=== PATIENT | male | born 1935 | race Caucasian/White ===

== ENCOUNTER → 2019-01-25 | Outpatient (CLI) | payer MEDICARE, OTHER, SELFPAY | PROVIDERS: PCP Internal Medicine; Visit Provider Nurse Practitioner | DX: Z13.6 Encounter for screening for cardiovascular disorders (principal); E78.5 Hyperlipidemia, unspecified | CPT/HCPCS: 36415; 80053; 80061 ==

== ENCOUNTER 2020-01-30 10:02 | Outpatient (CLI) | payer MEDICARE, OTHER, SELFPAY ==
[2020-01-30 10:49] LABS: Alanine Aminotransferase 19 U/L (4-50); Albumin Level 3.8 g/dL (3.5-5.1); Alkaline Phosphatase 53 U/L (38-126); Anion Gap 6 mmol/L (8-16); Aspartate Amino Transferase 22 U/L (17-59); Bilirubin,Total 0.2 mg/dL (0.2-1.3); Blood Urea Nitrogen 18 mg/dL (9-20); Calcium 9.3 mg/dL (8.4-10.2); Carbon Dioxide 31 mmol/L (22-30); Chloride 105 mmol/L (98-107); Cholesterol 141 mg/dL (0-200); Estimated Glomerular Filt Rate > 60; Glucose 104 mg/dL (75-110); HDL Direct 48 mg/dL; Sodium 142 mmol/L (137-145); Triglycerides 94 mg/dL (<150)
[2020-01-30 11:00] LABS: LDL Cholesterol Direct 77 mg/dL
[2020-02-03 07:34] LABS: Red Blood Cell Folate 872 ng/mL RBC (>280)
== END 2020-01-30 10:03 | disposition home or self-care (01) ==
PROVIDERS: PCP Internal Medicine; Visit Provider Internal Medicine
DX: R41.3 Other amnesia (principal); Z51.81 Encounter for therapeutic drug level monitoring; E78.5 Hyperlipidemia, unspecified
CPT/HCPCS: 36415; 80053; 80061; 82607; 82747; 84443

== ENCOUNTER → 2020-06-18 07:55 | Outpatient (CLI) | payer MEDICARE, OTHER, SELFPAY ==
--- NOTE | ~2020-06-18 | MR_ITS ---
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 TECHNIQUE: Magnetic resonance imaging (MRI) of the brain/brain stem obtained without contrast. Sagitt al T1, axial diffusion, gradient echo (T2*), T1, T2, FLAIR sequences obtained. There is no prior st udy for comparison. FINDINGS: There are no areas of restricted diffusion to suggest acute infarction. There is no acute hemorrhage seen on the T2*, a hemosiderin sensitive sequence. No intraparenchymal brain mass lesion. There is mild periventricular and subcortical T2/FLAIR signal hyperintensity, nonspecific but probab ly related to small vessel ischemic disease (microangiopathy). There is mild prominence of the sulc i and ventricles related to cerebral atrophy. There are no extra-axial collections. Flow voids are seen in the cerebral arteries on the T2-weighted sequences consistent with their expected patency. The orbits are unremarkable. There is 4 mm nonspecific calvarial signal abnormality in the left parieto-occipital region. Low-lyin g right cerebellar tonsil, not meeting criteria for Chiari 1 malformation. IMPRESSION: 1. Mild age-related findings. 2. Solitary punctate calvarial signal abnormality, most likely hemangioma or other benign finding. Reviewed, dictated and finalized at location [facility]. [facility] IMPRESSION: 1. Mild age-related findings. 2. Solitary punctate calvarial signal abnormality, most likely hemangioma or o ther benign finding.
== END ==
PROVIDERS: PCP Internal Medicine
DX: F03.91 Unspecified dementia, unspecified severity, with behavioral disturbance (principal)
CPT/HCPCS: 70551

== ENCOUNTER 2020-11-27 10:55 | Outpatient (CLI) | payer MEDICARE, OTHER, SELFPAY ==
[2020-11-27 11:32] LABS: Alanine Aminotransferase 20 U/L (4-50); Albumin Level 4.1 g/dL (3.5-5.1); Alkaline Phosphatase 55 U/L (38-126); Anion Gap 7 mmol/L (8-16); Aspartate Amino Transferase 27 U/L (17-59); Bilirubin,Total 0.4 mg/dL (0.2-1.3); Blood Urea Nitrogen 17 mg/dL (9-20); Calcium 9.5 mg/dL (8.4-10.2); Carbon Dioxide 30 mmol/L (22-30); Chloride 102 mmol/L (98-107); Cholesterol 173 mg/dL (0-200); Estimated Glomerular Filt Rate > 60; Glucose 103 mg/dL (65-110); HDL Direct 54 mg/dL; Potassium 4.3 mmol/L (3.4-5.0); Sodium 139 mmol/L (137-145); Triglycerides 91 mg/dL (<150)
[2020-11-27 11:44] LABS: LDL Cholesterol Direct 83 mg/dL
== END 2020-11-27 10:56 | disposition home or self-care (01) ==
PROVIDERS: PCP Internal Medicine; Visit Provider Nurse Practitioner
DX: E78.00 Pure hypercholesterolemia, unspecified (principal)
CPT/HCPCS: 36415; 80053; 80061

== ENCOUNTER → 2021-05-23 02:03 | Outpatient (CLI) | payer MEDICARE, OTHER, SELFPAY ==
[2021-05-23 21:12] LABS: SARS-CoV-2 RNA PCR Positive
== END ==
PROVIDERS: PCP Internal Medicine; Visit Provider Internal Medicine
DX: U07.1 COVID-19 (principal)
CPT/HCPCS: C9803; U0003; U0005

== ENCOUNTER 2021-06-10 14:25 | Outpatient (CLI) | payer MEDICARE, OTHER, SELFPAY ==
[2021-06-10 15:21] LABS: Alanine Aminotransferase 22 U/L (4-50); Albumin Level 3.7 g/dL (3.5-5.1); Alkaline Phosphatase 62 U/L (38-126); Anion Gap 4 mmol/L (8-16); Aspartate Amino Transferase 28 U/L (17-59); Bilirubin,Total 0.2 mg/dL (0.2-1.3); Blood Urea Nitrogen 18 mg/dL (9-20); Calcium 9.3 mg/dL (8.4-10.2); Carbon Dioxide 31 mmol/L (22-30); Chloride 106 mmol/L (98-107); Cholesterol 153 mg/dL (0-200); Estimated Glomerular Filt Rate > 60; Glucose 110 mg/dL (65-110); HDL Direct 48 mg/dL; Potassium 3.8 mmol/L (3.4-5.0); Sodium 141 mmol/L (137-145); Triglycerides 98 mg/dL (<150)
[2021-06-10 15:31] LABS: LDL Cholesterol Direct 75 mg/dL
== END 2021-06-10 14:26 | disposition home or self-care (01) ==
PROVIDERS: PCP Internal Medicine; Visit Provider Internal Medicine
DX: Z51.81 Encounter for therapeutic drug level monitoring (principal); E78.00 Pure hypercholesterolemia, unspecified; E78.5 Hyperlipidemia, unspecified
CPT/HCPCS: 36415; 80053; 80061

== ENCOUNTER 2021-10-18 13:08 | Outpatient (CLI) | payer MEDICARE, OTHER, SELFPAY ==
--- NOTE | ~2021-10-18 | CT_ITS ---
EXAMINATION: CT abdomen pelvis w con DATE: 10/18/2021 13:44 INDICATION: Left lower quadrant abdominal pain TECHNIQUE: Computed tomography (CT) of the abdomen and pelvis was performed with 100 cc Omnipaque 300 intravenous contrast. Automated exposure control and iterative reconstruction technique were employe d. Exam dose: 289.51 mGy-cm total exam DLP. COMPARISON: None. FINDINGS: Lung bases are clear of consolidation. Mild discoid atelectasis or scar at left lung base. Calcified pulmonary granuloma, lingula. Normal heart size. No pericardial or pleural effusion. No hepatic, splenic, pancreatic, and adrenal or renal space-occupying mass lesion is detected. The g allbladder is unremarkable. No bile duct or pancreatic duct dilatation. There is extensive calcification of the abdominal aorta and iliac and femoral arteries. No intraperi toneal or retroperitoneal or pelvic mass lesion or lymphadenopathy or ascites. Normal appendix. There is small bowel dilatation measuring up to 3.5 cm diameter, with numerous air fluid levels. There is a transition point in the lower anterior pelvis near midline, with soft tissue thickening of the wall. There is minimal likely incidental small bowel intussusception in the right lower quadrant. There are numerous diverticula of the colon; no evidence of diverticulitis. No intraperitoneal free air. There is prominent prostate enlargement and calcification. There is mild free fluid in the dependent pelvis. There is extensive degenerative change of the thoracic and particularly lumbar spine. IMPRESSION: Small bowel obstruction, right lower abdomen Extensive diverticulosis of the colon Normal appendix Prostate enlargement and calcifications Reviewed, dictated and finalized at [facility]. Reviewed, dictated and finalized at location [facility].
[2021-10-18 13:33] LABS: Estimated Glomerular Filt Rate > 60
== END 2021-10-18 13:09 | disposition home or self-care (01) ==
PROVIDERS: PCP Internal Medicine; Visit Provider Nurse Practitioner
DX: R10.32 Left lower quadrant pain (principal); K56.699 Other intestinal obstruction unspecified as to partial versus complete obstruction; K57.90 Diverticulosis of intestine, part unspecified, without perforation or abscess without bleeding; N40.0 Benign prostatic hyperplasia without lower urinary tract symptoms
CPT/HCPCS: 74177; Q9967

== ENCOUNTER 2021-10-21 13:09 | Inpatient (IN) | payer MEDICARE, OTHER, SELFPAY ==
[2021-10-21] VITALS (8 sets, daily range): BP systolic 116–135; BP diastolic 40–49; PULSE 68–85; RESP 16–18; TEMP 36.4; O2SAT 93–100
--- NOTE | ~2021-10-21 | XR_ITS ---
EXAMINATION: XR chest 1V portable INDICATION: Cough TECHNIQUE: Portable AP chest at 1545 hours COMPARISON: CT from today FINDINGS: There are airspace opacities in the right midlung zone. No pleural effusion or pneumothorax is identified. The heart size is normal. IMPRESSION: 1. Airspace opacities in the right midlung zone, demonstrated to be in the right upper lobe on today' s CT examination, consistent with postobstructive atelectasis versus pneumonia. Reviewed, dictated and finalized at location A. IMPRESSION: 1. Airspace opacities in the right midlung zone, demonstrated to be in the righ t upper lobe on today's CT examination, consistent with postobstructive atelect asis versus pneumonia.
--- NOTE | ~2021-10-21 | XR_ITS ---
EXAMINATION: XR abdomen obstructive series DATE: 10/22/2021 08:12 INDICATION: Small bowel obstruction. TECHNIQUE: Upright and supine views of the abdomen were obtained. COMPARISON: CT abdomen and pelvis 10/18/2021 FINDINGS: There are dilated loops of small bowel. The colon is normal in caliber. No free intraperito alejandra gas. There are airspace opacities in right midlung zone. IMPRESSION: 1. Persistently dilated small bowel, consistent with small bowel obstruction. 2. Persistent airspace opacities in right midlung zone, consistent with pneumonia. Reviewed, dictated and finalized at location A. IMPRESSION: 1. Persistently dilated small bowel, consistent with small bowel obstruction. 2. Persistent airspace opacities in right midlung zone, consistent with pneumon ia.
--- NOTE | ~2021-10-21 | XR_ITS ---
EXAMINATION: XR chest 2V DATE: 10/23/2021 09:11 INDICATION: Right-sided pneumonia. TECHNIQUE: Frontal and lateral views of the chest were obtained. COMPARISON: Chest 2 views 10/22/2021 FINDINGS: There are airspace opacities in right midlung zone predominantly involving anterior segment right upper lobe. There is mild atelectasis at the lung bases. A calcified left lung nodule and calc ified left hilar lymph nodes are consistent with old granulomatous disease. No pleural effusion or pn eumothorax. The heart size is normal. There are old healed left rib fractures. IMPRESSION: 1. Stable airspace opacities in right midlung zone predominantly involving anterior segment right upp er lobe, consistent with pneumonia. Reviewed, dictated and finalized at location A. IMPRESSION: 1. Stable airspace opacities in right midlung zone predominantly involving ante rior segment right upper lobe, consistent with pneumonia.
--- NOTE | ~2021-10-21 | XR_ITS ---
EXAMINATION: XR chest 2V DATE: 10/22/2021 08:12 INDICATION: Cough. TECHNIQUE: Frontal and lateral views of the chest were obtained. COMPARISON: Chest single view 10/21/2021, chest CT 10/21/2021 FINDINGS: There are airspace opacities in right midlung zone predominantly involving anterior segment right upper lobe. A calcified left lung nodule is consistent with old granulomatous disease. There i s mild atelectasis versus scarring at the lung bases. There is a small right pleural effusion. No pne umothorax. The heart size is normal. IMPRESSION: 1. Mildly worsened airspace opacities in right midlung zone predominantly involving anterior segment right upper lobe, consistent with pneumonia. 2. Small right pleural effusion. Reviewed, dictated and finalized at location A. IMPRESSION: 1. Mildly worsened airspace opacities in right midlung zone predominantly invol ving anterior segment right upper lobe, consistent with pneumonia. 2. Small right pleural effusion.
--- NOTE | ~2021-10-21 | CT_ITS ---
EXAMINATION: CT diagnostic chest wo con DATE: 10/21/2021 14:45 INDICATION: Lung mass TECHNIQUE: Computed tomography (CT) of the chest was performed without intravenous contrast. The dose -length product (DLP) was 161.52 mGy-cm. Automated exposure control and iterative reconstruction tech nique were employed. COMPARISON: 10/18/2021 FINDINGS: There are confluent airspace opacities of the right upper lobe. There is abrupt cut off of bronchi with branching hyperattenuating material in the affected segments of the right upper lobe. Pa tchy airspace opacities are present in the right middle and lower lobes. There is a small right pleur al effusion. There is no pneumothorax. There is mild bronchial wall thickening in the lower lobes. Th e heart size is normal. There is mild mediastinal lymphadenopathy. There are persistently dilated loo ps of small bowel are identified in the upper abdomen. There is severe thoracolumbar spondylosis. IMPRESSION: 1. Confluent airspace opacities of the right upper lobe with abrupt cut off of the bronchi and branch ing hyperattenuating material in the affected segments possibly reflecting aspiration or mucous plugg ing. Consider bronchoscopy. 2. Patchy opacities of the right middle and lower lobes, likely infectious/inflammatory. 3. No persistently dilated loops of small bowel in the visualized upper abdomen. Reviewed, dictated and finalized at location A. IMPRESSION: 1. Confluent airspace opacities of the right upper lobe with abrupt cut off of the bronchi and branching hyperattenuating material in the affected segments po ssibly reflecting aspiration or mucous plugging. Consider bronchoscopy. 2. Patchy opacities of the right middle and lower lobes, likely infectious/infl ammatory. 3. No persistently dilated loops of small bowel in the visualized upper abdomen .
--- NOTE | ~2021-10-21 | XR_ITS ---
EXAMINATION: XR abdomen obstructive series DATE: 10/21/2021 13:56 INDICATION: Abdominal pain TECHNIQUE: Upright and supine views of the abdomen were obtained. COMPARISON: CT, 10/18/2021 FINDINGS: There are persistent but decreased dilated small bowel loops. No free intraperitoneal gas i s identified. There is severe lumbar spondylosis. Moderate osteoarthritis is noted. There are airspac e opacities of the right midlung zone. IMPRESSION: 1. Improved small bowel obstruction. 2. Airspace opacities of the right midlung zone, infectious/inflammatory versus malignancy. Dedicated CT of the chest is recommended. Reviewed, dictated and finalized at location A.
--- NOTE | ~2021-10-21 | XR_ITS ---
EXAMINATION: XR sm bowel follow through WS DATE: 10/22/2021 14:35 INDICATION: Small bowel obstruction TECHNIQUE: Oral contrast was administered, and sequential radiographs of the abdomen were obtained u ntil oral contrast was noted to be in the proximal colon. No fluoroscopic images were obtained. COMPARISON: CT, 10/18/2021 FINDINGS: Transit time from the stomach to proximal colon was approximately one hour. There is normal caliber and mucosal fold pattern throughout the small bowel. Terminal ileum is normal. IMPRESSION: 1. Unremarkable small bowel follow-through. No obstruction. Reviewed, dictated and finalized at location A.
[2021-10-21 13:42] LABS: Basophils Percent Auto 0.9 % (0.2-1.2); Eosinophils Absolute Auto 0.3 K/mm3 (0-0.3); Eosinophils Percent Auto 5.6 % (0-4.4); Hematocrit 28.5 % (42.0-52.0); Hemoglobin 9.2 g/dL (14.0-18.0); Immature Granulocyte Absolute 0.03 K/mm3 (0.00-0.031); Immature Granulocyte Percent A 0.7 % (0-0.5); Lymphocytes Absolute Auto 0.57 K/mm3 (0.9-3.2); Lymphocytes Percent Auto 12.7 % (18.3-44.2); Mean Corpuscular HGB Conc 32.3 g/dl (32-36); Mean Corpuscular Hemoglobin 32.6 pg (26-34); Mean Corpuscular Volume 101.1 fl (80-100); Mean Platelet Volume 8.8 fl (7.4-10.4); Monocytes Absolute Auto 0.2 K/mm3 (0.1-0.6); Monocytes Percent Auto 3.6 % (2.6-8.5); Neutrophils Absolute Auto 3.4 K/mm3 (1.3-6.7); Neutrophils Percent Auto 76.5 % (45.5-73.1); Platelet Count Result 256 k/mm3 (150-375); Red Blood Count 2.82 M/mm3 (4.6-6.20); Red Cell Distribution Width 13.7 % (11.5-14.5); White Blood Count 4.5 K/mm3 (4.5-10.0)
--- NOTE | 2021-10-21 13:45 | PC.NURSE ---
Patient attempting to give urine sample at this time, declines straight cath.
--- NOTE | 2021-10-21 13:50 | ED.GENADULT ---
HPI - General Adult General Chief complaint: Nausea/Vomiting/Diarrhea Stated complaint: abdominal pain Time Seen by Provider: 10/21/21 13:10 Source: RN notes reviewed History of Present Illness HPI narrative: Patient presents emergency department from home for small bowel obstruction. Patient states he been having abdominal pain for the past week and a half he was seen by his PCP last Thursday and had a CT scan done on Thursday states he was called today and told to come to the emergency department as is CT scan shows small bowel obstruction. Patient states he has no abdominal pain at this time. States he last vomited 2 days ago and his last bowel movement was this morning he denies any fevers or chills chest pain shortness of breath or any other symptom Related Data Home Medications Medication Instructions Recorded Confirmed aspirin 325 mg tablet 325 mg PO DAILY 07/20/19 10/21/21 calcium carbonate 600 mg calcium 600 mg PO DAILY 12/05/20 10/21/21 (1,500 mg) tablet (Calcium) cholecalciferol (vitamin D3) 625 625 mcg PO WEEKLY 12/05/20 10/21/21 mcg (25,000 unit) capsule multivitamin 1 tablet PO DAILY 12/05/20 10/21/21 donepezil 10 mg tablet 10 mg PO QHS 06/12/21 10/21/21 sertraline 50 mg tablet 50 mg PO DAILY 06/12/21 10/21/21 Allergies Allergy/AdvReac Type Severity Reaction Status Date / Time No Known Allergies Allergy Mild Verified 10/21/21 13:22 Review of Systems Review of Systems: Gen.: Denies fevers or chills ENT: Denies congestion Respiratory: Denies shortness of breath or cough CV: Denies chest pain or palpitations GI: See HPI denies burning, urgency, frequency or hematuria Musculoskeletal: Denies back pain or muscle pain Neuro: Denies numbness, tingling, weakness or focal weakness Skin: Denies rash Except as documented, all other systems reviewed and negative [facility] Past Medical History Medical History (Updated 10/21/21 @ 15:57 by Bishnu Coronado DO) Pure hypercholesterolemia, unspecified Family History Family History Mother Patient's mother is Father Patient's father is Social History Social History Smoking status: Former smoker Smoking end date: 05/04/96 Alcohol intake: never Exam Narrative: APPEARANCE: No acute distress, nontoxic, resting in bed EYES: EOMI HEENT: Normocephalic, atraumatic, OMM RESPIRATORY: No respiratory distress Clear to auscultation bilaterally with no rhonchi wheezing or rales. CARDIOVASCULAR: Regular rate and rhythm without murmurs rubs or gallops. ABDOMINAL: Soft, nontender, nondistended, no rebound or guarding MUSCULOSKELETAl: Moves all extremities. No clubbing, cyanosis or edema. NEURO: Awake and alert. Following commands, speech normal, no focal deficits SKIN:: Warm, dry. No rashes lesions or abrasions PSYCHIATRIC: Normal affect/mood, Course Course Emergency Course: Reviewed old records including CT scan from 10/18 showing a small bowel obstruction Called and discussed with Dr. Amaro presentation work-up. At this time recommends admission recommends repeat abdominal series in a.m. patient may have clear liquids and will follow as inpatient Discussed with Dr. Apodaca patient CT results at this time recommends patient started on Zosyn as well as albuterol recommends a.m. chest x-ray and will follow as inpatient Discussed with [facility] Crystal for Dr. Lee agrees with admission Discussed with patient and family results of workup and diagnosis. Discussed need for admission. Patient and family understand and agree to current treatment plan Vital Signs Vital signs: Vital Signs Pulse Rate 85 10/21/21 13:15 Respiratory Rate 18 10/21/21 13:15 Blood Pressure 132/49 L 10/21/21 13:15 Pulse Oximetry 97 10/21/21 13:15 Oxygen Delivery Room Air 10/21/21 13:15 Pulse Rate 75 10/21/21 15:3
[2021-10-21 13:54] LABS: Alanine Aminotransferase 18 U/L (6-50); Albumin Level 3.2 g/dL (3.5-5.1); Alkaline Phosphatase 52 U/L (38-126); Anion Gap 2 mmol/L (8-16); Aspartate Amino Transferase 20 U/L (17-59); Bilirubin,Total < 0.1 mg/dL (0.2-1.3); Blood Urea Nitrogen 15 mg/dL (9-20); Calcium 8.3 mg/dL (8.4-10.2); Carbon Dioxide 30 mmol/L (22-30); Chloride 100 mmol/L (98-107); Estimated CRCL calculation 58 ml/min; Estimated Glomerular Filt Rate > 60; Glucose 151 mg/dL (65-110); INR 1.2; Potassium 3.5 mmol/L (3.4-5.0); Prothrombin Time 14.8 Seconds (11.1-14.7); Sodium 132 mmol/L (137-145)
[2021-10-21 13:55] LABS: Partial Thromboplastin Time 35.6 SECONDS (22.3-36.8)
[2021-10-21] MEDS: PIPERACILLIN/TAZOBACTAM SOD 4.5 GM in SODIUM CHLORIDE 0.9% IV 100 ML 200 ML IVPB ×2 (15:31→21:38)
--- NOTE | 2021-10-21 15:33 | PC.NURSE ---
patient is attempting to give urine sample at this time, patient declines straight cath.
[2021-10-21 15:50] LABS: Lactic Acid Reflex 1.3 mmol/L (0.7-2.0)
[2021-10-21 16:01] LABS: Appearance Urine Slightly Cloudy (Clear); Bilirubin Urine Negative (Negative); Blood Urine Negative (Negative); Color Urine Yellow (Yellow); Glucose Urine UA Negative (Negative); Ketones Urine Negative (Negative); Leukocyte Esterase Ur Negative LEU/UL (Negative); Nitrate Urine Negative (Negative); Protein Urine 1+ mg/dL (Negative); Urobilinogen Urine 0.2 mg/dL (<2.0); pH Urine 5.5 (5.0-9.0)
[2021-10-21 16:05] LABS: Mucus Urine Heavy /lpf; RBC Urine 0-2 /hpf (0-2); WBC Urine 0-3 /hpf
[2021-10-21 16:07] LABS: Add Urine Microscopic? YES
--- NOTE | 2021-10-21 16:17 | PM.CNGS ---
Assessment and Plan Assessment and plan (1) Small bowel obstruction: Code(s): K56.609 - Unspecified intestinal obstruction, unspecified as to partial versus complete obstruction Status: Acute Assessment and Plan: CT scan from Thursday was reviewed and discussed with family and the patient in detail. There is evidence of a small bowel obstruction. There is also mention of a small bowel intussusception in the RLQ, which is typically transient. He has no history of abdominal surgery that would suggest significant intra-abdominal adhesions as a cause for the small bowel obstruction. It also seems he has been having symptoms for even longer than two weeks with weight loss and poor appetite that are concerning. Although the obstructive series in the ER suggests this is improving, the etiology is still not clear. We will allow him to have clear liquids tonight and will repeat an obstructive series tomorrow morning. May consider a Gastrografin small bowel follow through tomorrow to further evaluate the small bowel and possible intussusception. There is also a fair amount of stool in the colon, so I will add Miralax and give a dulcolax suppository tonight. Thank you for allowing us to see the patient in consultation and we will continue to follow along with you. (2) Community acquired pneumonia: Code(s): J18.9 - Pneumonia, unspecified organism Status: Acute Assessment and Plan: He was started on IV Zosyn. Management per Hospitalist. (3) Anemia: Code(s): D64.9 - Anemia, unspecified Status: Acute (4) Dementia: Code(s): F03.90 - Unspecified dementia without behavioral disturbance Status: Acute (5) Benign prostatic hyperplasia without lower urinary tract symptoms: Code(s): N40.0 - Benign prostatic hyperplasia without lower urinary tract symptoms Status: Acute Plan I have discussed the patient's case and plan of care with Dr. Amaro. History of Present Illness Consult details Consult date: 10/21/21 Reason for consult: other (Small bowel obstruction) Requesting physician: Bishnu Coronado DO Narrative: This is an 85-year-old male with a history of dementia and hyperlipidemia, who has recently been experiencing intermittent generalized abdominal pain, vomiting, and poor appetite. His and son are at the bedside who assist in providing history with the patient's permission. Over the past 1-2 weeks, he has had at least 2 episodes of vomiting at home after meals and has been noted to appear to have abdominal pain mostly after meals. His family believes they have noticed he appears uncomfortable at other times during the day as well. They also report associated diarrhea last week and malaise. He has had poor oral intake for the past few weeks and they have been trying to get him to eat Ensure drinks daily. His believes he has lost 15-20 pounds over the past month or so. They never felt his symptoms were severe enough to come into the ER, so they had him see his PCP last Thursday. They started in on Augmentin, which he has been taking, for suspected diverticulitis, and also ordered a CT scan of the abdomen and pelvis. The CT was performed on Thursday of last week, and showed small bowel obstruction with transition point int eh lower anterior pelvis with soft tissue thickening of the wall and minimal likely incidental small bowel intussusception in the RLQ. They felt he started improving over the weekend and was tolerating a diet better. They report he had a bowel movement yesterday, but are unsure if he continues to have diarrhea or if he is now having formed stool. The PCP office called the patient's today with the CT scan results and instructed them to come into the ER for further evaluation. Obstructive series showed improvement in dilated small bowel loops, suggesting improved small bowel obstruction. Also noted was airspace opacities of the right midlung zone, which prompted CT c
[2021-10-21] MEDS: polyethylene glycoL 3350 17 GM POWD.PACK PO (16:57)
[2021-10-21] MEDS: BISACODYL 10 MG SUPPOSITORY RECTAL (18:09)
[2021-10-21] MEDS: SODIUM CHLORIDE 0.9% IV 1,000 ML 100 ML IV CONT (18:53)
--- NOTE | 2021-10-21 20:08 | PM.IMHP ---
H&P: HPI History of Present Illness Date/Time: Patient requires inpatient monitoring with expected length of stay to exceed 2 midnights for management of care. 10/21/21 20:08 Chief Complaint: Nausea vomiting Narrative: Mr. Uribe is an 85-year-old gentleman who presented emergency room after being told by his primary care to be evaluated for possible small-bowel obstruction. Patient states he had nausea and vomiting for approximately 1.5 weeks and went to see his primary care provider on Thursday and underwent CT of the abdomen and pelvis. Patient received a call from his primary care office today stating that the CT showed that he patient had a small bowel obstruction. Patient was told to come to the emergency room for further evaluation. Patient states he has been feeling very well in the last time he had any nausea vomiting was on Thursday. Patient states he has been eating today without any difficulty. Patient denies any shortness of breath, cough, fever, chills, chest pain, dysuria, hematuria, frequency, or urgency. Patient states that he has had a 25 lb weight loss in the last 6-8 months unintentionally. Patient states he did have a bowel movement today that was within normal limits. Upon evaluation emergency room patient did undergo obstructive series that showed improved small bowel obstruction. Patient also was noted to have airspace opacities of the right mid lung zone, infectious/inflammatory versus malignancy and CT of the chest was recommended. Patient underwent CT scan that she had confluent airspace opacities of the right upper lobe with abrupt cutoff of the bronchi and branching hyperattenuating material in the affected segments possibly reflecting aspiration or mucous plugging consider bronchoscopy. At that point pulmonology was consulted. Patient states he is typically not sick and has not been hospitalized since the 1950s. Patient states he does have a history of dyslipidemia, dementia, anxiety, and diverticulosis. Patient denies having any issues with his diverticulosis. Patient states over the last 2 days he had been taking all medications without any difficulty. Review of Systems Review of Systems: A 12 point review of systems was completed patient all pertinent positive and negative per HPI the remainder are unremarkable. [facility] Past Medical History Medical History (Updated 10/21/21 @ 20:14 by Dilma Mcgill APRN) Anxiety Dementia Diverticulosis Pure hypercholesterolemia, unspecified Surgical History Surgical History History of colonoscopy History of excision of pilonidal cyst Family History Family History Mother Patient's mother is Father Patient's father is Social History Social History Social History: Patient lives with his at home. His son, Damion, lives about a mile away and helps take care of his parents. Damion is the healthcare power of defense attorney. Smoking status: Former smoker Tobacco type: cigarettes Smoking end date: 05/04/96 Alcohol intake: never Substance use: never Living arrangements: with family Additional living arrangements comments: with his Occupation/Education: retired Spiritual care concerns: No Meds Home Medications and Allergies Home Medications Medication Instructions Recorded Confirmed Type aspirin 325 mg tablet 325 mg PO DAILY 07/20/19 10/21/21 History calcium carbonate 600 mg calcium 600 mg PO DAILY 12/05/20 10/21/21 History (1,500 mg) tablet (Calcium) cholecalciferol (vitamin D3) 625 625 mcg PO WEEKLY 12/05/20 10/21/21 History mcg (25,000 unit) capsule multivitamin 1 tablet PO DAILY 12/05/20 10/21/21 History donepezil 10 mg tablet 10 mg PO QHS 06/12/21 10/21/21 History sertraline 50 mg tablet 50 mg PO DAILY 06/12/21 0
[2021-10-21] MEDS: ALBUTEROL SULFATE NEB 2.5 MG/3 ML INH INHALATION (20:45)
[2021-10-21] MEDS: DONEPEZIL HCL 10 MG TABLET PO (21:46)
[2021-10-22] VITALS (7 sets, daily range): BP systolic 120–135; BP diastolic 39–54; PULSE 58–76; RESP 16–18; TEMP 36.3–36.7; O2SAT 93–100
[2021-10-22] MEDS: PIPERACILLIN/TAZOBACTAM SOD 4.5 GM in SODIUM CHLORIDE 0.9% IV 100 ML 200 ML IVPB ×4 (04:46→21:23)
[2021-10-22 05:44] LABS: Basophils Percent Auto 0.5 % (0.2-1.2); Eosinophils Absolute Auto 0.3 K/mm3 (0-0.3); Hematocrit 27.1 % (42.0-52.0); Hemoglobin 8.8 g/dL (14.0-18.0); Immature Granulocyte Absolute 0.03 K/mm3 (0.00-0.031); Immature Granulocyte Percent A 0.8 % (0-0.5); Lymphocytes Absolute Auto 0.56 K/mm3 (0.9-3.2); Lymphocytes Percent Auto 14.5 % (18.3-44.2); Mean Corpuscular HGB Conc 32.5 g/dl (32-36); Mean Corpuscular Hemoglobin 32.4 pg (26-34); Mean Corpuscular Volume 99.6 fl (80-100); Mean Platelet Volume 9.1 fl (7.4-10.4); Monocytes Absolute Auto 0.2 K/mm3 (0.1-0.6); Monocytes Percent Auto 3.9 % (2.6-8.5); Neutrophils Absolute Auto 2.8 K/mm3 (1.3-6.7); Neutrophils Percent Auto 73.3 % (45.5-73.1); Platelet Count Result 247 k/mm3 (150-375); Red Blood Count 2.72 M/mm3 (4.6-6.20); Red Cell Distribution Width 13.5 % (11.5-14.5); White Blood Count 3.9 K/mm3 (4.5-10.0)
[2021-10-22 06:09] LABS: Alanine Aminotransferase 15 U/L (6-50); Albumin Level 2.6 g/dL (3.5-5.1); Alkaline Phosphatase 52 U/L (38-126); Anion Gap 2 mmol/L (8-16); Aspartate Amino Transferase 24 U/L (17-59); Bilirubin,Total 0.1 mg/dL (0.2-1.3); Blood Urea Nitrogen 10 mg/dL (9-20); Calcium 8.4 mg/dL (8.4-10.2); Carbon Dioxide 28 mmol/L (22-30); Chloride 104 mmol/L (98-107); Estimated CRCL calculation 58 ml/min; Estimated Glomerular Filt Rate > 60; Glucose 104 mg/dL (65-110); Magnesium 1.8 mg/dL (1.6-2.3); Potassium 3.5 mmol/L (3.4-5.0); Sodium 134 mmol/L (137-145)
--- NOTE | 2021-10-22 06:55 | PM.CNPUL ---
Assessment and Plan Assessment and plan (1) Pulmonary infiltrates: Code(s): R91.8 - Other nonspecific abnormal finding of lung field Status: Acute Assessment and Plan: patient currently with confluent airspace opacities in the right upper lobe and patchy infiltrates with some consolidation in the right middle lobe and right lower lobe. There is mild mediastinal lymphadenopathy. Patient also has a small bowel obstruction and is a former smoker with 36 pack year history. Quit in 2001. Etiology includes pneumonia, aspiration, and lung cancer (primary or metastatic/SBO). He is hemodynamically stable and on room air with saturations 93%. At this time agree with Zosyn. Chest x-ray is slightly worse today and I will add IV Levaquin. Agree with albuterol 2.5 mg q.4 hours to aid in sputum expectoration. will also add Cornet flutter valve Q 4 while awake. Will follow patient clinically and radiologically with a chest x-ray in [address] Sabillon. Will follow with you. History of Present Illness History of Present Illness Consult date: 10/22/21 Chief complaint: small bowel obstruction,aspiration pneumonia Narrative: 10/22/2021: This is a new pulmonary consult for right upper lobe infiltrate with consolidation 85-year-old man with a history of hyperlipidemia, diverticulosis and dementia. Patient is able to spell his last name, knows he is in [facility] would tell me that it is 2013. He tells me the present in the [facility] is [place]. He is very vague about his answers to many of my questions. History obtained from Jud, the patient and the chart. patient has dementia which is been getting progressively worse. Over the last year his gait has slowed down and at times he is off balance and the also has noted some worsening dyspnea on exertion. He has no chronic phlegm production and the patient denies hemoptysis. The patient tells me he has had hemoptysis few times over the last few years. The tells me he can walk through the grocery store at baseline without having to stop for shortness of breath. Approximately 10/14 the patient developed abdominal pain and the called the primary physician who started Augmentin [id number] tablet b.i.d. which was started on 10/15/2021. On 10/16 the patient vomited after he was fed solid food. The tells me he was bending over the toilet when this happened and she denied any witnessed aspiration. Patient vomited again over the toilet in a similar manner on 10/18 and at that time a CT scan of the abdomen was ordered and the doctors told him to eat a bland diet with liquids only. CT scan on 10/18/2021 showed a small bowel obstruction with numerous air-fluid levels with a transition point in the lower anterior pelvis near the midline. There is soft tissue thickening of the wall. There is no free air. The lung bases were clear. throughout this time the says the patient was having 2 bowel movements a day. The patient denied any blood in the bowel movements and denied diarrhea. The patient's primary office called the family on 10/21 and told them to go to the emergency room. In the emergency room he was evaluated He was hemodynamically stable with a white blood cell count of 4.5, creatinine of 0.7 and an obstructive series that showed an infiltrate in the right mid lung area. abdominal series showed improved small bowel obstruction with airspace opacities in the right mid lung field. CT scan of the chest was obtained that demonstrated conclusion airspace infiltrates in the right upper lobe with additional past [place] in the right lower lobe and right middle lobe. Small right pleural effusion. Patient was started on Zosyn. Patient smoked 3/4 of a pack a cigarettes from age [age] for total of 36 pack years. , patient was exposed to secondhand smoke from both of his parents and his until 2019. Patient denies vaping, [place]
[2021-10-22] MEDS: ENOXAPARIN 40 MG/0.4 ML SYRINGE SUB-Q (09:32)
[2021-10-22] MEDS: SODIUM CHLORIDE 0.9% IV 1,000 ML 100 ML IV CONT (09:32)
[2021-10-22] MEDS: CALCIUM CARBONATE (OSCAL) 500 MG TABLET PO (09:33)
[2021-10-22] MEDS: ASPIRIN 81 MG ENTERIC TABLET PO (09:33)
[2021-10-22] MEDS: SIMVASTATIN 20 MG TABLET 40 MG PO (09:33)
[2021-10-22] MEDS: SERTRALINE HCL 50 MG TABLET PO (09:33)
[2021-10-22] MEDS: MULTIVITAMINS THERAPEUTIC TAB (*BKC) 1 TABLET PO (09:33)
--- NOTE | 2021-10-22 10:50 | PM.IMPN ---
Progress Note: A&P Assessment and Plan (1) Small bowel obstruction: Code(s): K56.609 - Unspecified intestinal obstruction, unspecified as to partial versus complete obstruction Status: Acute Assessment and Plan: Patient was noted to have a small-bowel obstruction on CT scan that was performed on Thursday. Patient did have an x-ray of the abdomen today that shows improvement in the small bowel obstruction. CT scan still shows obstruction. Surgical consult. Clinically he is improving and having bowel movements. Continue to follow along and monitor. (2) Community acquired pneumonia: Code(s): J18.9 - Pneumonia, unspecified organism Status: Acute Assessment and Plan: Pulmonary is following the patient. Possible obstructive process causing pneumonia. Also possible mucous plugging as continue Zosyn and Levaquin well. Clinically patient is doing well continue IV antibiotics. Managed per Pulmonary. Continue Zosyn Levaquin (3) Dementia: Code(s): F03.90 - Unspecified dementia without behavioral disturbance Status: Acute Assessment and Plan: Aricept is on hold for 5 days due to interaction with Levaquin. (4) Pure hypercholesterolemia, unspecified: Code(s): E78.00 - Pure hypercholesterolemia, unspecified Status: Chronic Subjective Date/time seen: 10/22/21 10:50 Doing well, no complaints. Exam Narrative: Constitutional: Patient is well-nourished in no acute distress. Patient is alert and oriented x3 HEENT: Moist mucous membranes. No scleral icterus. No lymphadenopathy. Neck: No carotid bruits noted no JVD noted Lungs: Lung sounds are clear to auscultation bilaterally. No accessory muscle use. No rhonchi, rales, or wheezes noted. Cardiovascular: Apical pulse is regular rate and rhythm. S1-S2 noted, no S3 or S4 noted. No gallops, murmurs, or rubs noted. Abdomen: Soft, round, and nontender. No palpable masses. Extremities: No edema. Nontender. Skin: No rashes or lesions. Warm and dry. Skin is intact. Neurological: No focal neurological deficits. Cranial nerves II-XII grossly intact. Psychiatric: Cooperative, appropriate mood, and affect Objective Data Vital Signs Vital Signs: Vital Signs - 24 hr 10/21/21 13:15 10/21/21 14:13 10/21/21 15:34 Temperature Pulse Rate 85 68 75 Respiratory Rate 18 18 18 Blood Pressure 132/49 L 120/45 L 135/46 L Pulse Oximetry 97 95 100 Oxygen Delivery Room Air Fraction of Inspired Oxygen 10/21/21 17:42 10/21/21 18:05 10/21/21 20:45 Temperature Pulse Rate 78 73 75 Respiratory Rate 18 18 Blood Pressure 116/41 L 120/40 L Pulse Oximetry 97 100 Oxygen Delivery Fraction of Inspired Oxygen 10/21/21 20:55 10/21/21 20:45 10/21/21 21:54 Temperature 97.6 F Pulse Rate 78 75 69 Respiratory Rate 16 Blood Pressure 130/47 L Pulse Oximetry 93 95 Oxygen Delivery Room Air Fraction of Inspired Oxygen 21 10/22/21 05:50 Temperature 98.1 F Pulse Rate 73 Respiratory Rate 16 Blood Pressure 127/39 L Pulse Oximetry 93 Oxygen Delivery Fraction of Inspired Oxygen Intake/Output Intake/Output: Intake & Output 10/19/21 10/20/21 10/21/21 10/22/21 23:59 23:59 23:59 23:59 Intake Total 200 2320 Output Total 900 Balance 200 1420 Meds/Results Medications: Active Medications Generic Name Dose Route Start Last Admin Trade Name Freq PRN Reason Stop Dose Admin Albuterol 2.5 mg 10/21/21 20:00 10/22/21 08:00 Albuterol Sulfate Neb 2.5 Mg/3 Ml Inh INHALATION Not Given Q6HRT JUAN A Aspirin 81 mg 10/22/21 09:00 10/22/21 09:33 Aspirin 81 Mg Enteric Tablet PO 81 mg QAM JUAN A Administration Calcium Carbonate 500 mg 10/22/21 09:00 10/22/21 09:33 Calcium Carbonate (Oscal) 500 Mg Tablet PO 500 mg DAILY JUAN A Administration Donepezil HCl 10 mg 10/21/21 21:00 10/21/21 21:46 Donepezil Hcl 10 Mg Tablet PO 10 mg HS JUAN A Administration Enoxap
--- NOTE | 2021-10-22 16:30 | PM.PNGS ---
Progress Note: A&P Assessment and Plan (1) Small bowel obstruction: Code(s): K56.609 - Unspecified intestinal obstruction, unspecified as to partial versus complete obstruction Status: Acute Assessment and Plan: I reviewed the SBFT today. No obstruction identified. OK to advance diet as tolerated. Will follow as needed. Subjective Subjective Date/Time Seen: 10/22/21 16:30 Interval history: Tolerating clear liquids. No nausea or vomiting. Bowels moving. No abdominal pain. Exam GI: Inspection: non-distended GI Palp: Yes Soft to palpation, No Tenderness to palpation present (GI), No Guarding due to palpation present (GI) and No Rebound tenderness present Percussion: Yes normal to percussion Auscultation: normal bowel sounds Objective Data Vital Signs Vital Signs: Vital Signs - 24 hr 10/21/21 17:42 10/21/21 18:05 10/21/21 20:45 Temperature Pulse Rate 78 73 75 Respiratory Rate 18 18 Blood Pressure 116/41 L 120/40 L Pulse Oximetry 97 100 Oxygen Delivery Fraction of Inspired Oxygen 10/21/21 20:55 10/21/21 20:45 10/21/21 21:54 Temperature 36.4 C Pulse Rate 78 75 69 Respiratory Rate 16 Blood Pressure 130/47 L Pulse Oximetry 93 95 Oxygen Delivery Room Air Fraction of Inspired Oxygen 10/22/21 05:50 10/22/21 14:57 10/22/21 14:00 Temperature 36.7 C 36.3 C L Pulse Rate 73 62 Respiratory Rate 16 16 Blood Pressure 127/39 L 120/54 L Pulse Oximetry 93 99 Oxygen Delivery Room Air Fraction of Inspired Oxygen 10/22/21 08:00 Temperature Pulse Rate Respiratory Rate Blood Pressure Pulse Oximetry 100 Oxygen Delivery Room Air Fraction of Inspired Oxygen Intake/Output Intake/Output: Intake & Output 10/19/21 10/20/21 10/21/21 10/22/21 23:59 23:59 23:59 23:59 Intake Total 200 2800 Output Total 900 Balance 200 1900 Meds/Results Medications: Active Medications Generic Name Dose Route Start Last Admin Trade Name Freq PRN Reason Stop Dose Admin Albuterol 2.5 mg 10/21/21 20:00 10/22/21 14:23 Albuterol Sulfate Neb 2.5 Mg/3 Ml Inh INHALATION Not Given Q6HRT JUAN A Aspirin 81 mg 10/22/21 09:00 10/22/21 09:33 Aspirin 81 Mg Enteric Tablet PO 81 mg QAM JUAN A Administration Calcium Carbonate 500 mg 10/22/21 09:00 10/22/21 09:33 Calcium Carbonate (Oscal) 500 Mg Tablet PO 500 mg DAILY JUAN A Administration Donepezil HCl 10 mg 10/21/21 21:00 10/21/21 21:46 Donepezil Hcl 10 Mg Tablet PO 10 mg HS JUAN A Administration Enoxaparin Sodium 40 mg 10/22/21 09:00 10/22/21 09:32 Enoxaparin 40 Mg/0.4 Ml Syringe SUB-Q 40 mg DAILY JUAN A Administration Piperacillin Sod/Tazobactam 100 mls @ 200 mls/hr 10/21/21 22:00 10/22/21 09:33 Sod 4.5 gm/ Sodium Chloride IVPB 200 mls/hr Q6H JUAN A Administration Sodium Chloride 1,000 mls @ 100 mls/hr 10/21/21 17:40 10/22/21 09:32 Normal Saline Iv IV CONT 100 mls/hr .Q10H JUAN A Administration Levofloxacin/Dextrose 750 mg in 150 mls @ 100 mls/hr 10/22/21 09:40 10/22/21 12:30 Levaquin 750 Mg/D5w 150 Ml IVPB 100 mls/hr DAILY JUAN A Administration Miscellaneous Information 1 each 10/21/21 00:01 Clarify Vitamin D3--97818 Units Is Too High Of Dose To Take At One Time. Is It Possible O XX 11/20/21 00:00 CLARIFY [facility] Multivitamins Therapeutic 1 tablet 10/22/21 09:00 10/22/21 09:33 Multivitamins Therapeutic Tab (*Bkc) PO 1 tablet DAILY [facility] Administration Non-Formulary Medication 625 mcg 10/28/21 09:00 Cholecalciferol (Vitamin D3) PO 11/27/21 08:59 WEEKLY [facility] Polyethylene Glycol 17 gm 10/22/21 09:00 10/22/21 09:32 Polyethylene Glycol 3350 17 Gm Powd.Pack PO Not Given QAM [facility] Sertraline HCl 50 mg 10/22/21 09:00 10/22/21 09:33 Sertraline Hcl 50 Mg Tablet PO 50 mg DAILY [facility] Administration Simvastatin 40 mg 10/22/21 09:00 10/22/21 09:33 Simvastatin 20 Mg Tablet PO 40 mg DAILY JUAN A
[2021-10-22] MEDS: ALBUTEROL SULFATE NEB 2.5 MG/3 ML INH INHALATION (20:40)
[2021-10-22] MEDS: DONEPEZIL HCL 10 MG TABLET PO (21:22)
[2021-10-23] VITALS (7 sets, daily range): BP systolic 123; BP diastolic 46; PULSE 60–84; RESP 18; TEMP 36.1; O2SAT 94–96
[2021-10-23] MEDS: SODIUM CHLORIDE 0.9% IV 1,000 ML 100 ML IV CONT (01:07)
[2021-10-23] MEDS: ALBUTEROL SULFATE NEB 2.5 MG/3 ML INH INHALATION ×2 (02:42→08:06)
[2021-10-23] MEDS: PIPERACILLIN/TAZOBACTAM SOD 4.5 GM in SODIUM CHLORIDE 0.9% IV 100 ML 200 ML IVPB (03:50)
[2021-10-23 08:28] LABS: Basophils Percent Auto 0.8 % (0.2-1.2); Eosinophils Absolute Auto 0.3 K/mm3 (0-0.3); Hematocrit 28.3 % (42.0-52.0); Hemoglobin 9.2 g/dL (14.0-18.0); Immature Granulocyte Absolute 0.03 K/mm3 (0.00-0.031); Immature Granulocyte Percent A 0.8 % (0-0.5); Lymphocytes Absolute Auto 0.42 K/mm3 (0.9-3.2); Lymphocytes Percent Auto 11.6 % (18.3-44.2); Mean Corpuscular HGB Conc 32.5 g/dl (32-36); Mean Corpuscular Hemoglobin 32.7 pg (26-34); Mean Corpuscular Volume 100.7 fl (80-100); Mean Platelet Volume 8.6 fl (7.4-10.4); Monocytes Absolute Auto 0.1 K/mm3 (0.1-0.6); Monocytes Percent Auto 3.3 % (2.6-8.5); Neutrophils Absolute Auto 2.7 K/mm3 (1.3-6.7); Neutrophils Percent Auto 75.5 % (45.5-73.1); Platelet Count Result 301 k/mm3 (150-375); Red Blood Count 2.81 M/mm3 (4.6-6.20); Red Cell Distribution Width 13.6 % (11.5-14.5); White Blood Count 3.6 K/mm3 (4.5-10.0)
[2021-10-23 08:37] LABS: Anion Gap 4 mmol/L (8-16); Blood Urea Nitrogen 5 mg/dL (9-20); Calcium 8.6 mg/dL (8.4-10.2); Carbon Dioxide 28 mmol/L (22-30); Chloride 107 mmol/L (98-107); Estimated CRCL calculation 58 ml/min; Estimated Glomerular Filt Rate > 60; Glucose 108 mg/dL (65-110); Potassium 3.6 mmol/L (3.4-5.0); Sodium 139 mmol/L (137-145)
--- NOTE | 2021-10-23 08:44 | PM.PNPUL ---
Progress Note: A&P Assessment and Plan (1) Pulmonary infiltrates: Code(s): R91.8 - Other nonspecific abnormal finding of lung field Status: Acute Assessment and Plan: 10/22 patient currently with confluent airspace opacities in the right upper lobe and patchy infiltrates with some consolidation in the right middle lobe and right lower lobe. There is mild mediastinal lymphadenopathy. Patient also has a small bowel obstruction and is a former smoker with 36 pack year history. Quit in 2001. Etiology includes pneumonia, aspiration, and lung cancer (primary or metastatic/SBO). He is hemodynamically stable and on room air with saturations 93%. At this time agree with Zosyn (started 10/21). Was on augmentin 10/15 through 10/21). Chest x-ray is slightly worse today and I will add IV Levaquin. Agree with albuterol 2.5 mg q.4 hours to aid in sputum expectoration. will also add Cornet flutter valve Q 4 while awake. Will follow patient clinically and radiologically with a chest x-ray. 10/23 Patient denies any respiratory complaints. Denies fever, chills, rigors, phlegm production or hemoptysis. White blood cell count is 3.6 he is afebrile. Room air saturations 96%. Patient states he is eating. Agree with Zosyn and Levaquin while in house. I will check a chest x-ray today and if the infiltrates are stable he will be ready for discharge from a pulmonary perspective on these pulmonary medicines. He will need follow-up imaging to document resolution of the pulmonary infiltrates. Levaquin 750 mg p.o. q.day through 10/28. Follow up in pulmonary clinic in 3-[address] [place]. Will follow with you. Subjective Date/time seen: 10/23/21 08:44 Interval history: 10/22/2021:? This is a new pulmonary consult for right upper lobe infiltrate with consolidation ?85-year-old man with a history of hyperlipidemia, diverticulosis and dementia. ? Patient is able to spell his last name, knows he is in [facility] would tell me that it is 2013.? He tells me the present in the [place]. ? He is very vague about his answers to many of my questions. ? History obtained from Jud, the patient and the chart. ?patient has dementia which is been getting progressively worse.? Over the last year his gait has slowed down and at times he is off balance and the also has noted some worsening dyspnea on exertion.? He has no chronic phlegm production and the patient denies hemoptysis.? The patient tells me he has had hemoptysis few times over the last few years.? The tells me he can walk through the grocery store at baseline without having to stop for shortness of breath. ? Approximately 10/14 the patient developed abdominal pain? and the called the primary physician who started Augmentin [id number] tablet b.i.d. which was started on 10/15/2021.? On 10/16 the patient vomited after he was fed solid food.? The tells me he was bending over the toilet when this happened and she denied any witnessed aspiration.? Patient vomited again over the toilet in a similar manner on 10/18 and at that time a CT scan of the abdomen was ordered and the doctors told him to eat a bland diet with liquids only. ? CT scan on 10/18/2021 showed a small bowel obstruction with numerous air-fluid levels with a transition point in the lower anterior pelvis near the midline.? There is soft tissue thickening of the wall.? There is no free air.? The lung bases were clear.? throughout this time the says the patient was having 2 bowel movements a day.? The patient denied any blood in the bowel movements and denied diarrhea. ? The patient's primary office called the family on 10/21 and told them to go to the emergency room.? In the emergency room he was evaluated ? He was hemodynamically stable with a white blood cell count of 4.5, creatinine of 0.7 and an obstructive series that showed an infiltrate in the right mid lung area. ? abdomin
[2021-10-23] MEDS: ENOXAPARIN 40 MG/0.4 ML SYRINGE SUB-Q (09:30)
[2021-10-23] MEDS: SIMVASTATIN 20 MG TABLET 40 MG PO (09:30)
[2021-10-23] MEDS: CALCIUM CARBONATE (OSCAL) 500 MG TABLET PO (09:30)
[2021-10-23] MEDS: SERTRALINE HCL 50 MG TABLET PO (09:30)
[2021-10-23] MEDS: ASPIRIN 81 MG ENTERIC TABLET PO (09:30)
[2021-10-23] MEDS: MULTIVITAMINS THERAPEUTIC TAB (*BKC) 1 TABLET PO (09:30)
[2021-10-23] MEDS: polyethylene glycoL 3350 17 GM POWD.PACK PO (09:30)
[2021-10-23] MEDS: PIPERACILLIN/TAZOBACTAM SOD 4.5 GM in SODIUM CHLORIDE 0.9% IV 100 ML IVPB (09:32)
--- NOTE | 2021-10-23 10:52 | PM.DS ---
DS: Admitting Diagnosis Discharge Date October 23, 2021 Admitting Diagnosis Small-bowel obstruction DS: Discharge Diagnosis Discharge Diagnosis (1) Small bowel obstruction: Code(s): K56.609 - Unspecified intestinal obstruction, unspecified as to partial versus complete obstruction Status: Acute Assessment and Plan: Patient was noted to have a small-bowel obstruction on CT scan that was performed on Thursday. Patient did have an x-ray of the abdomen today that shows improvement in the small bowel obstruction. CT scan still shows obstruction. Surgical consult. Clinically he is improving and having bowel movements. Continue to follow along and monitor. (2) Dementia: Code(s): F03.90 - Unspecified dementia without behavioral disturbance Status: Acute Assessment and Plan: Aricept is on hold for 5 days due to interaction with Levaquin. (3) Pure hypercholesterolemia, unspecified: Code(s): E78.00 - Pure hypercholesterolemia, unspecified Status: Chronic (4) Pulmonary infiltrates: Code(s): R91.8 - Other nonspecific abnormal finding of lung field Status: Acute Assessment and Plan: Etiology is aspiration versus postobstructive pneumonia versus other underlying insidious process DS: Summary Hospital Course Hospital Course: 85-year-old male with past medical history significant for dementia, diverticulosis and hyperlipidemia is presenting with possible small-bowel obstruction found by his PCP. He saw his primary care provider complaining of nausea and vomiting for about a week or so and a CT scan was ordered that showed obstruction. Therefore, he was sent to the ER. Chest CT was also performed in the ER that showed abnormalities in the right upper lobe concerning for aspiration versus mucous plugging versus pneumonia. Pulmonology was consulted. Due to patient's nausea and vomiting improving, General surgery was consulted recommended against NG tube and instead advanced tolerated his diet started with clear liquid. Pulmonology recommended placing patient on Zosyn and monitoring chest x-rays, some concern for possible underlying insidious etiology. Patient does have a significant smoking history of 36 pack years. Chest x-ray the following day worsened a bit and Levaquin was added. Patient's symptoms improved significantly, no signs of underlying infection ever noted, and there was mediastinal lymphadenopathy noted. Clinically, patient has partial small-bowel obstruction completely resolved. General surgery signed off. Aricept was held when the Levaquin was added. Small-bowel follow-through was done to confirm no residual obstruction, this was normal, diet continued to be advanced without any recurrence of symptoms. Repeat chest x-ray was performed and was essentially unchanged. It was recommended that patient be discharged on Levaquin until October 27 with close outpatient follow-up to confirm resolution of the abnormalities noted on chest imaging. Status at Discharge Overall status at discharge: patient is progressing back to baseline Time Spent with Patient Time attestation: Total time spent providing and/or coordinating discharge services: Time spent: Greater than 30 minutes Exam Narrative: General: Patient resting comfortably in bed, no acute distress HEENT: Atraumatic, normocephalic, mucous membranes moist CV: Regular rate and rhythm, S1, S2, no murmurs rubs or gallops noted Lungs: Clear to auscultation bilaterally, no rales or crackles noted, no wheezes, good air entry Abdomen: Soft, nontender, nondistended Extremities: Normal to inspection, no edema noted Skin: No rashes noted, no lesions or wounds seen Psych: Euthymic, normal affect Neuro: Cranial nerves 2-12 grossly intact, strength 5/5 upper and lower extremities noted DS: Data Data Completed and Pending Labs on day of discharge: Labs from last 24 hours 10/23/21 10/23/21 08:16 08:16 WBC 3.6 L RBC
== END 2021-10-23 14:11 | disposition home or self-care (01) | DRG 390 ==
LOC: ANHED 15:57 → ANH3MEDSUR 18:07
PROVIDERS: Admitting Provider Family Medicine; Emergency Provider Emergency Medicine; PCP Internal Medicine; Visit Provider Student in an Organized Health Care Education/Training Program
DX: K56.609 Unspecified intestinal obstruction, unspecified as to partial versus complete obstruction (principal); R59.0 Localized enlarged lymph nodes; R91.8 Other nonspecific abnormal finding of lung field; K57.90 Diverticulosis of intestine, part unspecified, without perforation or abscess without bleeding; D64.9 Anemia, unspecified; E78.00 Pure hypercholesterolemia, unspecified; F03.90 Unspecified dementia, unspecified severity, without behavioral disturbance, psychotic disturbance, mood disturbance, and anxiety; F41.9 Anxiety disorder, unspecified; N40.0 Benign prostatic hyperplasia without lower urinary tract symptoms; Z87.891 Personal history of nicotine dependence; Z79.82 Long term (current) use of aspirin
CPT/HCPCS: 36415; 71045; 71046; 71250; 74019; 74177; 74250; 80048; 80053; 81001; 83605; 83735; 85025; 85610; 85730; 87040; 94640; 94667; 94668; 97161; 97165; 99285; A9270; J1650; J1956; J2543; J7030; Q9967

== ENCOUNTER 2021-12-04 14:14 | Outpatient (CLI) | payer MEDICARE, OTHER, SELFPAY ==
--- NOTE | ~2021-12-04 | XR_ITS ---
XR chest 2V DATE: 12/04/2021 14:46 INDICATION: Cough. TECHNIQUE: PA and lateral views COMPARISON: 10/23/2021 AP and lateral chest FINDINGS: There is interval considerable improvement of anterior segment right upper lobe infiltrate since 10/23/2021, with mild residual infiltrate, atelectasis and/or scarring. The remaining lung field s appear clear of infiltrate or consolidation. Bilateral hyperinflation suggesting obstructive airways disease. Normal heart size. Aortic calcification and mild unfolding. Osteopenia. IMPRESSION: Improvement of anterior segment right upper lobe infiltrate since 10/23/2021; mild residua l infiltrate, atelectasis and/or scarring Reviewed, dictated and finalized at location B. IMPRESSION: Improvement of anterior segment right upper lobe infiltrate since ; mild residual infiltrate, atelectasis and/or scarring
== END 2021-12-04 14:15 | disposition home or self-care (01) ==
PROVIDERS: PCP Internal Medicine; Visit Provider Internal Medicine Pulmonary Disease
DX: R91.8 Other nonspecific abnormal finding of lung field (principal); I70.0 Atherosclerosis of aorta
CPT/HCPCS: 71046

== ENCOUNTER 2021-12-16 11:42 | Outpatient (CLI) | payer MEDICARE, OTHER, SELFPAY ==
[2021-12-16 12:09] LABS: Alanine Aminotransferase 14 U/L (6-50); Albumin Level 4.1 g/dL (3.5-5.1); Alkaline Phosphatase 58 U/L (38-126); Anion Gap 6 mmol/L (8-16); Aspartate Amino Transferase 25 U/L (17-59); Bilirubin,Total 0.2 mg/dL (0.2-1.3); Blood Urea Nitrogen 18 mg/dL (9-20); Calcium 9.1 mg/dL (8.4-10.2); Carbon Dioxide 31 mmol/L (22-30); Chloride 103 mmol/L (98-107); Cholesterol 229 mg/dL (0-200); Estimated Glomerular Filt Rate > 60; Glucose 101 mg/dL (65-110); HDL Direct 51 mg/dL; Potassium 4.2 mmol/L (3.4-5.0); Sodium 140 mmol/L (137-145); Triglycerides 71 mg/dL (<150)
[2021-12-16 12:20] LABS: LDL Cholesterol Direct 138 mg/dL
== END 2021-12-16 11:43 | disposition home or self-care (01) ==
LOC: ANHLAB 11:44
PROVIDERS: PCP Internal Medicine; Visit Provider Nurse Practitioner
DX: E78.5 Hyperlipidemia, unspecified (principal)
CPT/HCPCS: 36415; 80053; 80061

== ENCOUNTER 2022-06-18 11:33 | Outpatient (CLI) | payer MEDICARE, OTHER, SELFPAY ==
[2022-06-18 12:31] LABS: Alanine Aminotransferase 17 U/L (6-50); Albumin Level 4.1 g/dL (3.5-5.1); Alkaline Phosphatase 59 U/L (38-126); Anion Gap 3 mmol/L (8-16); Aspartate Amino Transferase 21 U/L (17-59); Bilirubin,Total 0.4 mg/dL (0.2-1.3); Blood Urea Nitrogen 16 mg/dL (9-20); Calcium 8.9 mg/dL (8.4-10.2); Carbon Dioxide 31 mmol/L (22-30); Chloride 102 mmol/L (98-107); Cholesterol 239 mg/dL (0-200); Estimated Glomerular Filt Rate > 60; Glucose 94 mg/dL (65-110); HDL Direct 48 mg/dL; Sodium 136 mmol/L (137-145); Triglycerides 96 mg/dL (<150)
[2022-06-18 12:42] LABS: LDL Cholesterol Direct 139 mg/dL
== END 2022-06-18 11:34 | disposition home or self-care (01) ==
PROVIDERS: PCP Internal Medicine; Visit Provider Internal Medicine
DX: Z51.81 Encounter for therapeutic drug level monitoring (principal); E78.00 Pure hypercholesterolemia, unspecified; E78.5 Hyperlipidemia, unspecified
CPT/HCPCS: 36415; 80053; 80061

== ENCOUNTER 2022-07-10 10:03 | Outpatient (CLI) | payer MEDICARE, OTHER, SELFPAY ==
--- NOTE | ~2022-07-10 | CT_ITS ---
Non-contrast Head CT History: Head injury Technique: Axial non-contrast imaging of the brain was performed. Dose reduction technique was used on this scan by utilizing automated exposure control and iterative reconstruction technique. The dose -length product (DLP) was 681.00 mGy-cm. Findings: There is no evidence of intracranial hemorrhage, mass lesion, or acute infarct. Brain par enchyma appears normal. The ventricles and subarachnoid spaces are normal in size. The calvarium ap pears normal. The visualized paranasal sinuses and mastoid air cells are clear. Impression: No significant abnormality seen. Reviewed, dictated and finalized at [facility]. OYMENT PROGRAMS ANALYST Impression: No significant abnormality seen.
--- NOTE | ~2022-07-10 | XR_ITS ---
Thoracic spine: Clinical Indication: Pain AP and lateral views were performed. Mild to moderate compression fracture of what is probably T6 noted. There is normal alignment of the vertebrae. The intervertebral disc spaces appear normal. Paravertebral soft tissues appear normal. Impression: Mild to moderate compression fracture of probably T6. Reviewed, dictated and finalized at [facility]. BILITATION CONSTRUCTION SPECIALIST Impression: Mild to moderate compression fracture of probably T6.
== END 2022-07-10 10:04 | disposition home or self-care (01) ==
PROVIDERS: PCP Internal Medicine; Visit Provider Nurse Practitioner
DX: R51.9 Headache, unspecified (principal); S22.050A Wedge compression fracture of T5-T6 vertebra, initial encounter for closed fracture; X58.XXXA Exposure to other specified factors, initial encounter
CPT/HCPCS: 70450; 72070

== ENCOUNTER → 2022-08-05 13:44 | Outpatient (CLI) | payer MEDICARE, OTHER, SELFPAY ==
--- NOTE | ~2022-08-05 | MR_ITS ---
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 Sagittal localizer T1-weighted FSE of the cervicothoracic spine was obtained. Thoracic spine sequences included sagittal T2-weighted FSE, sagittal T1-weighted SE, Sagittal T2-weighted FS FSE, a nd axial T2-weighted FSE. COMPARISON: None FINDINGS: Mild thoracolumbar levocurvature. Mild kyphosis centered at a progressing subacute T6 burst fracture, now with75% anterior to central vertebral body height loss, increased from 25% anterior vertebral mercedes dy height loss on radiograph dated 07/20/2022. Mild associated retropulsion with mild convex contour t o the posterior vertebral body wall resulting in mild central canal stenosis. There is associated mar row edema throughout the vertebral body and extending into the intact appearing posterior elements.Th ere is additional edema the T6-T7 interspinous soft tissues. Additional chronic mild superior endplat e compression fracture with <20%vertebral body height loss and without marrow edema at T1 and T3. Add itional chronic compression fracture with 20% anterior vertebral body height loss at L1. Severe disc height loss with degenerative endplate changes and disc bulges resulting in mild central canal stenos is at T7-T8 and T8-T9. Severe right-sided disc height loss at T11-T12 and T12-L1 also with associated disc bulges and mild central canal stenosis. Mild disc height loss at many of the remaining thoracic levels. Additional disc bulge resulting in mild central canal stenosis at T10-T11. Moderate to sever e lower cervical spondylosis. No pathologic marrow replacing process. The conus terminates at L1. The re is normal cord signal. IMPRESSION: 1. Ongoing progression of a subacute T6 burst fracture with 75% anterior to central vertebral body he ight loss and mild retropulsion resulting in mild central canal stenosis. 2. Severe thoracic and upper lumbar spondylosis with additional chronic mild compression fractures at T1, T3 and L1. Reviewed, dictated and finalized at location A. IMPRESSION: 1. Ongoing progression of a subacute T6 burst fracture with 75% anterior to yamil tral vertebral body height loss and mild retropulsion resulting in mild central canal stenosis. 2. Severe thoracic and upper lumbar spondylosis with additional chronic mild co mpression fractures at T1, T3 and L1.
== END ==
PROVIDERS: PCP Pain Medicine Pain Medicine; Visit Provider Pain Medicine Pain Medicine
DX: S22.051A Stable burst fracture of T5-T6 vertebra, initial encounter for closed fracture (principal); M48.04 Spinal stenosis, thoracic region; M47.815 Spondylosis without myelopathy or radiculopathy, thoracolumbar region
CPT/HCPCS: 72146

== ENCOUNTER 2022-08-27 15:36 | Outpatient (CLI) | payer MEDICARE, OTHER, SELFPAY ==
[2022-08-27 16:30] LABS: Eosinophils Absolute Auto 0.1 K/mm3 (0-0.3); Hematocrit 32.7 % (42.0-52.0); Hemoglobin 10.6 g/dL (14.0-18.0); Immature Granulocyte Absolute 0.01 K/mm3 (0.00-0.031); Immature Granulocyte Percent A 0.3 % (0-0.5); Lymphocytes Absolute Auto 0.67 K/mm3 (0.9-3.2); Lymphocytes Percent Auto 22.4 % (18.3-44.2); Mean Corpuscular HGB Conc 32.4 g/dl (32-36); Mean Corpuscular Hemoglobin 32.3 pg (26-34); Mean Corpuscular Volume 99.7 fl (80-100); Mean Platelet Volume 8.8 fl (7.4-10.4); Monocytes Absolute Auto 0.2 K/mm3 (0.1-0.6); Monocytes Percent Auto 5.7 % (2.6-8.5); Neutrophils Absolute Auto 2.1 K/mm3 (1.3-6.7); Neutrophils Percent Auto 68.6 % (45.5-73.1); Platelet Count Result 314 k/mm3 (150-375); Red Blood Count 3.28 M/mm3 (4.6-6.20); Red Cell Distribution Width 15.2 % (11.5-14.5)
[2022-08-27 16:46] LABS: Alanine Aminotransferase 20 U/L (6-50); Albumin Level 4.3 g/dL (3.5-5.1); Alkaline Phosphatase 78 U/L (38-126); Anion Gap 4 mmol/L (8-16); Aspartate Amino Transferase 25 U/L (17-59); Bilirubin,Total 0.4 mg/dL (0.2-1.3); Blood Urea Nitrogen 17 mg/dL (9-20); Calcium 9.6 mg/dL (8.4-10.2); Carbon Dioxide 34 mmol/L (22-30); Chloride 103 mmol/L (98-107); Estimated Glomerular Filt Rate > 60; Glucose 94 mg/dL (65-110); Potassium 3.8 mmol/L (3.4-5.0); Sodium 141 mmol/L (137-145)
[2022-08-27 17:14] LABS: Immunoglobulin A 54 mg/dL (70-400); Immunoglobulin G 464 mg/dL (700-1600)
[2022-08-27 17:46] LABS: Immunoglobulin M < 25 mg/dL (40-230)
[2022-08-30 21:41] LABS: Albumin 3.8 g/dL (3.8-4.8); Alpha 1 Globulin 0.4 g/dL (0.2-0.3); Beta 1 Globulin 0.4 g/dL (0.4-0.6); Gamma Globulin 0.4 g/dL (0.8-1.7); Protein, Total 6.3 g/dL (6.1-8.1)
[2022-08-31 15:07] LABS: Kappa\\Lambda Light Chains 150.14 (0.26-1.65); Lambda Light Chain 8.8 mg/L (5.7-26.3)
== END 2022-08-27 15:37 | disposition home or self-care (01) ==
PROVIDERS: PCP Internal Medicine; Visit Provider Internal Medicine Hematology & Oncology
DX: C90.00 Multiple myeloma not having achieved remission (principal)
CPT/HCPCS: 36415; 80053; 82784; 83883; 84155; 84165; 85025

== ENCOUNTER 2022-09-01 01:06 | Day surgery (SDC) | payer MEDICARE, OTHER, SELFPAY ==
--- NOTE | ~2022-09-01 | BM_ITS ---
EXAMINATION: CCL bone marrow asp w bx diag DATE: 09/01/2022 10:27 INDICATION: Plasma cell disorder. Multiple myeloma. TECHNIQUE: A time-out was performed to verify the patient's name, date of , and procedure to b e performed. The procedure including the risks, benefits, and alternatives was discussed with the pat ient. Risks discussed included bleeding and infection. The patient understood the risks and agreed to proceed. The skin overlying the left ilium was prepped and draped in usual sterile fashion. Anesth etic was administered with 1% lidocaine subcutaneously. 50 mcg fentanyl IV was given for pain control . An 11 gauge needle was inserted into the ilium with fluoroscopic guidance. Bone marrow was aspirat ed. An 8 gauge needle was then inserted into the ilium with fluoroscopic guidance. A core bone marrow biopsy was obtained. There were no immediate complications. Fluoroscopy exposure time was 0.0 minute s. The total number of images was 34. FINDINGS: Real-time fluoroscopy demonstrates a marker overlying the left posterior superior iliac spi ne. IMPRESSION: 1. Fluoro-guided bone marrow aspiration. 2. Fluoro-guided bone marrow core biopsy. Reviewed, dictated and finalized at location A.
[2022-09-01 07:49] VITALS: BP 147/51; PULSE 77; RESP 22; TEMP 36.7; O2SAT 95; BMI 18.4
[2022-09-01 07:58] LABS: Eosinophils Absolute Auto 0.1 K/mm3 (0-0.3); Eosinophils Percent Auto 2.9 % (0-4.4); Hematocrit 31.2 % (42.0-52.0); Hemoglobin 10.1 g/dL (14.0-18.0); Immature Granulocyte Absolute 0.01 K/mm3 (0.00-0.031); Immature Granulocyte Percent A 0.3 % (0-0.5); Lymphocytes Absolute Auto 0.78 K/mm3 (0.9-3.2); Lymphocytes Percent Auto 25.4 % (18.3-44.2); Mean Corpuscular HGB Conc 32.4 g/dl (32-36); Mean Corpuscular Hemoglobin 32.8 pg (26-34); Mean Corpuscular Volume 101.3 fl (80-100); Mean Platelet Volume 8.9 fl (7.4-10.4); Monocytes Absolute Auto 0.2 K/mm3 (0.1-0.6); Monocytes Percent Auto 5.5 % (2.6-8.5); Neutrophils Percent Auto 64.9 % (45.5-73.1); Platelet Count Result 301 k/mm3 (150-375); Red Blood Count 3.08 M/mm3 (4.6-6.20); Red Cell Distribution Width 15.3 % (11.5-14.5); White Blood Count 3.1 K/mm3 (4.5-10.0)
[2022-09-01 08:07] LABS: INR 1.1; Prothrombin Time 14.5 Seconds (11.1-14.7)
--- NOTE | 2022-09-01 09:28 | WPDMODSED ---
Moderate Sedation Note-Pt Data Patient Data Diagnosis: Multiple myeloma. Present Complaint: Multiple myeloma. Procedure to be performed/Plan: Fluoro-guided bone marrow biopsy of ilium. Allergies Allergy/AdvReac Type Severity Reaction Status Date / Time No Known Allergies Allergy Mild Verified 09/01/22 07:45 Home Medications Medication Instructions Recorded Confirmed Type aspirin 325 mg tablet 81 mg PO DAILY 07/20/19 08/29/22 History cholecalciferol (vitamin D3) 625 1,000 unit PO WEEKLY 12/05/20 08/29/22 History mcg (25,000 unit) capsule multivitamin 1 tablet PO DAILY 12/05/20 08/29/22 History donepezil 10 mg tablet 10 mg PO QHS #90 tabs 04/18/22 08/29/22 Rx glucosamine HCl 1,500 mg tablet 1,500 mg PO DAILY 06/27/22 08/29/22 History sertraline 50 mg tablet 50 mg PO DAILY 06/27/22 08/29/22 History simvastatin 40 mg tablet 40 mg PO DAILY #30 tabs 07/30/22 08/29/22 Rx Calcium with Vitamin D See Rx Instructions .Route .COMPLEX 08/29/22 08/29/22 History tramadol PRN Pain 08/29/22 History vitamin B complex (B 1 tablet PO DAILY 08/29/22 08/29/22 History Complex-Vitamin B12 tablet) Sedation/Anesthesia: No previous sedation/anesthesia problems (including family history). [facility] Past Medical History Medical History Anxiety Dementia Diverticulosis Pure hypercholesterolemia, unspecified Surgical History Surgical History History of colonoscopy History of excision of pilonidal cyst Family History Family History Mother Patient's mother is Father Patient's father is Social History Social History (Updated 06/27/22 @ 10:32 by Eugenia Bae MA) Social History: Patient lives with his at home. His son, Damion, lives about a mile away and helps take care of his parents. Damion is the healthcare power of criminal defense attorney. Smoking packs per day: 1 Smoking cigarettes per day: 20.0 Years smoked: 25 Smoking pack-years: 25.00 Smoking status: Former smoker Tobacco type: cigarettes Smoking end date: 05/04/11 Alcohol intake: never Substance use: never Substance use type: does not use Lack of Transportation: No Lack of Food: Never True Current Housing: I Have Housing Concerned About Future Housing: No Difficulty Paying Gas/Electric Bills: No Difficulty Paying for Meds: No Currently Unemployed: No Education: Master's Degree or Higher Difficulty w/ Childcare or Family Care: No Living arrangements: with family Additional living arrangements comments: with his Occupation/Education: retired Spiritual care concerns: No Mod Sed Physical Exam Physical Exam Pre Procedural Exam: Normal: Appearance, Lungs, Heart Rate, Heart Rhythm and Abdomen Hours since solid foods: 12 Hours since liquid intake: 12 Mallampati Classification: class II Internal Medicine - PN: Obj Da Vital Signs Vital Signs: Vital Signs - 24 hr 09/01/22 07:49 Temperature 36.7 C Pulse Rate 77 Respiratory Rate 22 H Blood Pressure 147/51 H Pulse Oximetry 95 Oxygen Delivery Room Air Labs 09/01/22 07:47 Labs: Laboratory Results - last 24 hr 09/01/22 07:47 WBC 3.1 L RBC 3.08 L Hgb 10.1 L Hct 31.2 L MCV 101.3 H MCH 32.8 MCHC 32.4 RDW 15.3 H Plt Count 301 MPV 8.9 Immature Gran % (Auto) 0.3 Neut % (Auto) 64.9 Lymph % (Auto) 25.4 [place] % (Auto) 5.5 Eos % (Auto) 2.9 Baso % (Auto) 1.0 Lymph # (Auto) 0.78 L [place] # (Auto) 0.2 Eos # (Auto) 0.1 Baso # (Auto) 0.0 Abs Immat Gran (auto) 0.01 Absolute Neuts (auto) 2.0 Absolute Nucleated RBC 0.0 Nucleated RBC % 0.0 PT 14.5 INR 1.1 ASA Classification/Sedation ASA Classification/Sedation ASA Class: II Emergent: No Risks: Risks, benefits and alternatives explained and patient/family accepted plan for charley
[2022-09-01 10:20] VITALS: BP 167/63; PULSE 75; RESP 15; O2SAT 98
[2022-09-01 10:30] VITALS: BP 168/60; PULSE 70; RESP 14; O2SAT 95
[2022-09-01 10:45] VITALS: BP 161/58; PULSE 72; RESP 14; O2SAT 96
[2022-09-01 11:00] VITALS: BP 161/62; PULSE 72; RESP 15; O2SAT 95
[2022-09-01 11:15] VITALS: BP 156/62; PULSE 72; RESP 22; O2SAT 96
== END 2022-09-01 11:29 | disposition home or self-care (01) ==
PROVIDERS: PCP Nurse Practitioner; Referring Provider Internal Medicine Hematology & Oncology; Visit Provider Radiology Diagnostic Radiology
DX: C90.00 Multiple myeloma not having achieved remission (principal); F03.90 Unspecified dementia, unspecified severity, without behavioral disturbance, psychotic disturbance, mood disturbance, and anxiety; F41.9 Anxiety disorder, unspecified; E78.00 Pure hypercholesterolemia, unspecified; Z87.891 Personal history of nicotine dependence; Z79.82 Long term (current) use of aspirin
CPT/HCPCS: 36415; 38222; 85025; 85610; 88184; 88185; 88305; 88311; 88313; J1642; J2250; J3010; J7040

== ENCOUNTER → 2022-09-01 15:24 | Outpatient (CLI) | payer MEDICARE, OTHER, SELFPAY ==
--- NOTE | ~2022-09-01 | MR_ITS ---
EXAMINATION: MR cervical spine wo con DATE: 09/01/2022 16:13 INDICATION: Cervical radiculopathy. TECHNIQUE: Magnetic resonance imaging (MRI) of the cervical spine was performed without intravenous c ontrast. COMPARISON: None FINDINGS: There is 2 mm anterolisthesis of C4 on C5, 2 mm retrolisthesis of C5 on C6, and 2 mm tati listhesis of C7 on T1. There is mild chronic anterior wedging of T1, T2, and T3 vertebral bodies. The re is mildly decreased disc height at C3-C4 and severely decreased disc height from C4-C5 through C6- C7 with endplate remodeling. The spinal cord signal intensity is normal. The following disc levels ar e specifically discussed: C2-C3: The disc does not extend beyond the endplate margin. There is no uncovertebral joint osteoarth ritis. There is severe bilateral facet joint osteoarthritis. There is no neural foraminal stenosis. T here is no central canal stenosis. C3-C4: The disc is bulging. There is mild right and severe left uncovertebral joint osteoarthritis. T here is severe bilateral facet joint osteoarthritis. There is mild right and moderate left neural for aminal stenosis. There is mild central canal stenosis. C4-C5: The disc is bulging. There is mild right and severe left uncovertebral joint osteoarthritis. T here is severe bilateral facet joint osteoarthritis. There is mild right and moderate left neural for aminal stenosis. There is mild central canal stenosis. C5-C6: The disc is bulging. There is severe bilateral uncovertebral joint osteoarthritis. There is se carlos right and moderate left facet joint osteoarthritis. There is moderate right and mild left neural foraminal stenosis. There is mild central canal stenosis. C6-C7: The disc is bulging. There is severe bilateral uncovertebral joint osteoarthritis. There is se carlos right and mild left facet joint osteoarthritis. There is moderate right and mild left neural for aminal stenosis. There is mild central canal stenosis. C7-T1: The disc does not extend beyond the endplate margin. There is no uncovertebral joint osteoarth ritis. There is severe bilateral facet joint osteoarthritis. There is mild bilateral neural foraminal stenosis. There is no central canal stenosis. IMPRESSION: 1. Severe cervical spondylosis. Reviewed, dictated and finalized at location A.
== END ==
PROVIDERS: PCP Internal Medicine; Visit Provider Pain Medicine Pain Medicine
DX: M47.22 Other spondylosis with radiculopathy, cervical region (principal)
CPT/HCPCS: 72141

== ENCOUNTER 2022-09-04 11:56 | Outpatient (CLI) | payer MEDICARE, OTHER, SELFPAY ==
--- NOTE | ~2022-09-04 | PE_ITS ---
EXAMINATION: PET skull to mid thigh DATE: 09/04/2022 14:34 INDICATION: Multiple myeloma TECHNIQUE: Blood glucose level was 109 mg/dL. 9.311 mCi of 18-fluorodeoxyglucose (18-FDG) was adminis tered i.v. Low dose computed tomography (CT) images were acquired from the base of the brain to the p roximal thighs for attenuation correction and anatomic localization. Positron emission tomography (PE T) images were acquired in the same distribution beginning 65 minutes after injection. Images includi ng fused PET/CT images were reconstructed in axial, coronal, and sagittal planes. Automated exposure control technique was employed. The dose-length product was 481.80mGy-cm. COMPARISON: None FINDINGS: Head/neck: There is symmetric increased activity in the nasal and oral cavities, laryngeal muscles and ocular mu scles without CT correlate, likely physiologic. There is additional relatively symmetric increased ac tivity extending throughout the primarily posterior paraspinal musculature at the neck and extending into the upper upper chest without radiologic correlate, likely physiologic. Atherosclerotic calcific ations at the bilateral carotid bulbs. No pathologically enlarged cervical lymphadenopathy or suspici ous foci of increased FDG uptake in the visualized head or neck. Chest: Mild discoid atelectasis in the anteroinferior right upper lobe along the minor fissure with mild FDG uptake along the medial side of the region of atelectasis with maximal SUV of 3.2. Dislocated the si te of a prior right upper lobe pneumonia. Bibasilar atelectasis and additional mild discoid atelectas is in the left lower lobe. Calcified nodule at the lingula and right lower lobe along with calcified bilateral hilar and mediastinal lymph nodes consistent with old granulomatous disease. No other suspi cious pulmonary nodules, pneumonia or pleural effusion. Heart size is normal. Atherosclerotic coronar y artery calcific lesion. Aortic valve calcification. Atherosclerotic thoracic aorta is normal in gillian iber. No pathologically enlarged or FDG avid thoracic lymphadenopathy. Abdomen/pelvis/proximal thighs: Physiologic renal accumulation and excretion of FDG activity in the kidneys, bladder and along portio ns of ureters. There are a few tiny hepatic and splenic calcific lesions consistent with old granulom atous disease. Normal degree and heterogenous pattern of increased uptake throughout the liver withou t radiologic correlate or dominant FDG avid lesion. The gallbladder, pancreas and bilateral adrenal g lands are normal. Mild uptake scattered throughout the bowels without radiologic correlate, also like ly physiologic. There is extensive colonic diverticulosis with a sigmoid predominance without adjacen t inflammatory change to suggest diverticulitis. Normal appendix. No other abnormal foci of increased FDG uptake or pathologically enlarged lymphadenopathy in the abdomen, pelvis or proximal thighs. Musculoskeletal: Mildly displaced left fifth-seventh rib fractures and right right fifth and sixth rib fractures with mild to moderate increased FDG uptake with maximal SUV values of between 3.5 and 5.8. T6 compression fracture with 80% anterior vertebral body height loss and change of prior vertebroplasty. There is in creased FDG uptake with maximal SUV of 6.3 associated with what appears to be an additional mild comp ression fracture at T5. Mild lumbar dextrocurvature with severe spondylosis and chronic mild compress ion fractures at L1 and L2. Diffuse osteopenia with decreased trabecular pattern and intramedullary f atty attenuation of the marrow evident at many of the larger bones particularly in the pelvis. There are a couple small regions of subtle soft tissue density at the bilateral posterior iliac spines with corresponding increased FDG uptake with mild SUV uptake with maximal SUV of 2.3 on the right and mor e prominent uptake on the left with maximal SUV of 3.5. C
[2022-09-04 12:42] LABS: Glucose Point of Care 109 mg/dl (65-105)
== END 2022-09-04 11:57 | disposition home or self-care (01) ==
PROVIDERS: PCP Internal Medicine; Visit Provider Internal Medicine Hematology & Oncology
DX: C90.00 Multiple myeloma not having achieved remission (principal); M85.89 Other specified disorders of bone density and structure, multiple sites
CPT/HCPCS: 78815; A9552

== ENCOUNTER 2022-10-12 20:43 | Emergency (ER) | payer MEDICARE, OTHER, SELFPAY ==
--- NOTE | ~2022-10-12 | CT_ITS ---
EXAMINATION: CT brain wo con INDICATION: Head injury COMPARISON: 07/10/2022 TECHNIQUE: Standard unenhanced head CT. The dose-length product (DLP) was 605.33 mGy-cm. The mA was a djusted according to patient size. Iterative reconstruction technique was employed. FINDINGS: There is no acute intraparenchymal hemorrhage. No evidence of mass lesion. No evidence of a cute infarction. There is mild periventricular and subcortical hypodensity probably related to small vessel ischemic disease. There is mild prominence of the sulci and ventricles related to cerebral atr ophy. Intracranial calcified cerebral atherosclerosis is noted. There are no extra-axial collections. There is no mass effect or midline shift. Changes in the globes are likely from ocular lens surgery. There is mild mucosal thickening of the paranasal sinuses. IMPRESSION: 1. No acute intracranial abnormality. 2. Age related findings. Reviewed, dictated and finalized at location A.
--- NOTE | ~2022-10-12 | CT_ITS ---
EXAMINATION: CT cervical spine wo con DATE: 10/13/2022 02:05 INDICATION: Head injury TECHNIQUE: Computed tomography (CT) of the cervical spine was performed without intravenous contrast. The dose-length product (DLP) was 364.78 mGy-cm. Automated exposure control and iterative reconstruc tion technique were employed. COMPARISON: MRI, 09/01/2022 FINDINGS: There is mild chronic wedging at T1, T2, and T3. There are 2 mm of unchanged anterolisthesi s of C4 on C5 and C6 on C7 and 2 mm of stable retrolisthesis of C5 on C6. There is severe loss of int ervertebral disc space height at C4-5, C5-6, and C6-7. There is no acute fracture of the cervical spi ne. The odontoid process is intact. There is multilevel severe facet and uncovertebral joint osteoart hritis. IMPRESSION: 1. Severe cervical spondylosis without acute findings or significant interval change. Reviewed, dictated and finalized at location A. IMPRESSION: 1. Severe cervical spondylosis without acute findings or significant interval c stoney.
--- NOTE | ~2022-10-12 | CT_ITS ---
EXAMINATION: CT chest abdomen pelvis w con DATE: 10/13/2022 02:08 INDICATION: Pain after fall TECHNIQUE: Transaxial computed tomographic images of the chest, abdomen, and pelvis were obtained aft er the administration of 100 cc of Omnipaque 350 intravenous contrast. The dose-length product (DLP) was 573.35 mGy-cm. Automated exposure control and iterative reconstruction technique were employed. COMPARISON: 09/04/2022, 10/21/2021 FINDINGS: CHEST CT: Mild atelectasis is again noted in the medial aspect of the right upper lobe and in the left lower lo be. There is bronchiectasis in the lower lobes. No pleural effusion or pneumothorax. The lungs are fr ee of acute opacities. No pathologically enlarged thoracic lymph nodes are identified. The heart size is normal. There is calcified coronary artery atherosclerosis. There are multiple thoracic compressi on fractures without significant change. Bilateral rib fractures are again noted and not significantl y changed from the recent CT comparison. ABDOMEN/PELVIS CT: The liver, pancreas, gallbladder, and adrenal glands are normal. Linear calcification along the later al margin of the spleen may reflect prior injury. The kidneys are unremarkable. No pathologically enl arged abdominal or pelvic lymph nodes are identified. There is calcified atherosclerosis of the aorta and many of the other arteries. No free intraperitoneal gas or evidence of bowel obstruction. Coloni c diverticulosis is present without evidence of diverticulitis. The appendix is normal. There is lisa ed enlargement of the prostate. There is severe lumbar spondylosis. IMPRESSION: 1. No acute findings in the chest, abdomen, or pelvis. Reviewed, dictated and finalized at location A.
[2022-10-12 20:55] VITALS: BP 165/54; PULSE 76; RESP 16; TEMP 37.2; O2SAT 96
[2022-10-12 22:12] VITALS: BP 147/69; PULSE 66; RESP 12; O2SAT 96
[2022-10-12 23:50] LABS: Basophils Percent Auto 0.8 % (0.2-1.2); Eosinophils Percent Auto 0.8 % (0-4.4); Hemoglobin 9.7 g/dL (14.0-18.0); Immature Granulocyte Absolute 0.02 K/mm3 (0.00-0.031); Immature Granulocyte Percent A 0.5 % (0-0.5); Lymphocytes Absolute Auto 0.51 K/mm3 (0.9-3.2); Lymphocytes Percent Auto 13.3 % (18.3-44.2); Mean Corpuscular HGB Conc 33.4 g/dl (32-36); Mean Corpuscular Hemoglobin 33.4 pg (26-34); Mean Platelet Volume 9.3 fl (7.4-10.4); Monocytes Absolute Auto 0.2 K/mm3 (0.1-0.6); Monocytes Percent Auto 4.7 % (2.6-8.5); Neutrophils Absolute Auto 3.1 K/mm3 (1.3-6.7); Neutrophils Percent Auto 79.9 % (45.5-73.1); Platelet Count Result 216 k/mm3 (150-375); Red Cell Distribution Width 15.1 % (11.5-14.5); White Blood Count 3.8 K/mm3 (4.5-10.0)
--- NOTE | 2022-10-13 | ECG_ITS ---
Measurements Intervals [employer] Rate: 75 P: 73 CT: 168 QRS: 57 QRSD: 149 T: 41 QT: 426 QTc: 476 Interpretive Statements SINUS RHYTHM RIGHT BUNDLE BRANCH BLOCK [120+ ms QRS DURATION, UPRIGHT V1, 40+ ms S IN I/aVL/V4/V5/V6] ABNORMAL ECG NO PREVIOUS ECG AVAILABLE FOR COMPARISON Electronically Signed On 10-13-2022 11:24:41 CDT by Franklin Núñez M.D.
[2022-10-13 00:01] LABS: Alanine Aminotransferase 21 U/L (6-50); Albumin Level 3.2 g/dL (3.5-5.1); Alkaline Phosphatase 57 U/L (38-126); Anion Gap -1 mmol/L (8-16); Aspartate Amino Transferase 19 U/L (17-59); Bilirubin,Total 0.2 mg/dL (0.2-1.3); Blood Urea Nitrogen 19 mg/dL (9-20); Calcium 8.6 mg/dL (8.4-10.2); Carbon Dioxide 34 mmol/L (22-30); Chloride 103 mmol/L (98-107); Estimated CRCL calculation 55 ml/min; Estimated Glomerular Filt Rate > 60; Glucose 110 mg/dL (65-110); Magnesium 2.1 mg/dL (1.6-2.3); Potassium 3.6 mmol/L (3.4-5.0); Sodium 136 mmol/L (137-145)
--- NOTE | 2022-10-13 00:04 | ED.FALL ---
HPI - Fall General Chief Complaint: Fall <HANG Perkins Last Filed: 10/14/22 08:58> Stated Complaint: fall, hit head no loc <HANG Perkins Last Filed: 10/14/22 08:58> Time Seen by Provider: 10/12/22 22:26 <HANG Perkins Last Filed: 10/14/22 08:58> Source: patient and family <HANG Perkins Last Filed: 10/14/22 08:58> Mode of arrival: ambulatory <HANG Perkins Last Filed: 10/14/22 08:58> Limitations: no limitations and dementia <HANG Perkins Last Filed: 10/14/22 08:58> History of Present Illness HPI Narrative: Patient is an 86-year-old male who presents to the ED with report of a fall. Patient has a history of dementia and is alert and oriented x2 at baseline. Family at bedside assisted in providing information. Patient was using the restroom tonight, attempting to urinate when he fell. He did not have any pain at that time. He is unsure how exactly the fall occurred. He does not remember the fall entirely. Unsure if he hit his head or lost consciousness. heard a thud and found him on the ground. Patient complains of pain to his right mid back, right lateral chest wall, worse with taking deep breaths. He denies any nausea, vomiting, anterior chest pain, dizziness, lightheadedness, vision changes, headache. Patient is not on any blood thinners. He was recently diagnosed with multiple myeloma and completed his first chemotherapy treatment a couple of weeks ago. He has been doing well since then. He sees a oncologist, Dr. Foreman with [facility]. Denies any fever. <HANG Perkins Last Filed: 10/14/22 08:58> Related Data Home Medications: Home Medications Medication Instructions Recorded Confirmed aspirin 325 mg tablet 81 mg PO DAILY 07/20/19 08/29/22 cholecalciferol (vitamin D3) 625 1,000 unit PO WEEKLY 12/05/20 08/29/22 mcg (25,000 unit) capsule multivitamin 1 tablet PO DAILY 12/05/20 08/29/22 glucosamine HCl 1,500 mg tablet 1,500 mg PO DAILY 06/27/22 08/29/22 sertraline 50 mg tablet 50 mg PO DAILY 06/27/22 08/29/22 Calcium with Vitamin D See Rx Instructions .Route .COMPLEX 08/29/22 08/29/22 tramadol PRN Pain 08/29/22 vitamin B complex (B 1 tablet PO DAILY 08/29/22 08/29/22 Complex-Vitamin B12 tablet) <Keyanna Richter PA-C - Last Filed: 10/14/22 08:58> Allergies/Adverse Reactions: Allergies Allergy/AdvReac Type Severity Reaction Status Date / Time No Known Allergies Allergy Mild Verified 10/12/22 20:44 <Keyanna Richter PA-C - Last Filed: 10/14/22 08:58> Review of Systems Review of Systems: CONSTITUTIONAL: Denies fever, chills, or sweats. EYES: Denies visual changes. CARDIOVASCULAR: Denies chest pain, palpitations, or edema. RESPIRATORY: See HPI. GASTROINTESTINAL: Denies abdominal pain, nausea, vomiting. MUSCULOSKELETAL: See HPI. NEUROLOGIC: See HPI. <Keyanna Richter PA-C - Last Filed: 10/14/22 08:58> All systems reviewed & are unremarkable except as noted in HPI and below <Keyanna Richter PA-C - Last Filed: 10/14/22 08:58> [facility] Past Medical History Medical History: Medical History (Updated 10/14/22 @ 00:04 by James Blankenship) Anxiety Dementia Diverticulosis Multiple myeloma Pure hypercholesterolemia, unspecified <Keyanna Richter PA-C - Last Filed: 10/14/22 08:58> Surgical History Surgical History: Surgical History History of colonoscopy History of excision of pilonidal cyst <Keyanna Richter PA-C - Last Filed: 10/14/22 08:58> Family History Family History: Family History Mother Patient's mother is Father Patient's father is <Keyanna Richter PA-C - Last Filed: 10/14/22 08:58> Social History Social History:
[2022-10-13 00:11] LABS: Appearance Urine Clear (Clear); Bilirubin Urine Negative (Negative); Blood Urine Negative (Negative); Color Urine Dark Yellow (Yellow); Glucose Urine UA Negative (Negative); Ketones Urine Negative (Negative); Leukocyte Esterase Ur Negative LEU/UL (Negative); Nitrate Urine Negative (Negative); Protein Urine Negative (Negative); Specific Grav Ur 1.019 (1.001-1.035); Urobilinogen Urine 0.2 mg/dL (<2.0)
[2022-10-13 00:12] LABS: Troponin I < 0.012 ng/mL (0.000-0.034)
[2022-10-13 00:12] LABS: Add Urine Microscopic? NO
[2022-10-13] MEDS: traMADol HCL (*CRX) 50 MG TABLET PO (01:30)
[2022-10-13] MEDS: ACETAMINOPHEN 500 MG TABLET 1000 MG PO (01:30)
[2022-10-13 02:26] VITALS: BP 147/71; PULSE 75; RESP 15; O2SAT 96
[2022-10-13 06:09] VITALS: BP 167/80; PULSE 72; RESP 12; O2SAT 96
== END 2022-10-13 06:49 | disposition home or self-care (01) ==
PROVIDERS: Physician Assistant; Emergency Provider Emergency Medicine; PCP Family Medicine
DX: S22.41XA Multiple fractures of ribs, right side, initial encounter for closed fracture (principal); S22.010A Wedge compression fracture of first thoracic vertebra, initial encounter for closed fracture; S22.020A Wedge compression fracture of second thoracic vertebra, initial encounter for closed fracture; S22.030A Wedge compression fracture of third thoracic vertebra, initial encounter for closed fracture; F03.90 Unspecified dementia, unspecified severity, without behavioral disturbance, psychotic disturbance, mood disturbance, and anxiety; C90.00 Multiple myeloma not having achieved remission; Z79.899 Other long term (current) drug therapy; Z79.60 Long term (current) use of unspecified immunomodulators and immunosuppressants; I45.10 Unspecified right bundle-branch block; M47.812 Spondylosis without myelopathy or radiculopathy, cervical region; W19.XXXA Unspecified fall, initial encounter
CPT/HCPCS: 36415; 70450; 71260; 72125; 74177; 80053; 81003; 83735; 84484; 85025; 93005; 99284; A9270; Q9967